=== PATIENT | male | born 1955 | race Caucasian/White ===

== ENCOUNTER 2016-09-09 22:27 | Inpatient (IN) | payer OTHER ==
[~2016-09-09] VITALS: Ht 170.2 cm; Wt 63.5 kg
[2016-09-09] MEDS ORDERED: IV SET PRIMARY 1 EA INFUS.SET MC ONE (22:58)
[2016-09-09] MEDS ORDERED: IV NS 0.9% 1,000 ML ONE (22:58)
[2016-09-09] MEDS ORDERED: IV NS 0.9% 1,000 ML BAG IV ONE (23:00)
[2016-09-09 23:30] LABS: BASOPHILS % (AUTO) 0.3 % (0.0-2.0); DIFF TOTAL % 100 %; EOSINOPHILS % (AUTO) 0.3 % (0.0-6.0); HEMATOCRIT 47 % (39-51); HEMOGLOBIN 15.7 g/dL (13.5-17.5); LYMPHOCYTES # (AUTO) 2.1 /CMM (0.8-4.8); LYMPHOCYTES % (AUTO) 16.7 % (20.0-44.0); MEAN CORPUSCULAR HEMOGLOBIN 32 PG (26.0-33.0); MEAN CORPUSCULAR HGB CONC 34 g/dl (31.0-36.0); MEAN CORPUSCULAR VOLUME 94 fL (80-96); MONOCYTES % (AUTO) 8.4 % (2.0-12.0); NEUTROPHILS # (AUTO) 9.1 /CMM (1.8-8.9); NEUTROPHILS % (AUTO) 74.3 % (43.0-81.0); PLATELET COUNT (AUTO) 314 /CMM (150-450); RED BLOOD CELL COUNT(AUTO) 4.95 MIL/uL (4.5-6.0); WHITE BLOOD COUNT (AUTO) 12.3 K/uL (4.3-11.0)
[2016-09-09 23:38] LABS: KETONES,URINE NEGATIVE (NEGATIVE); LEUKOCYTE ESTERASE ,URINE NEGATIVE (NEGATIVE); PH,URINE 6.5 (5.0-8.0)
[2016-09-09 23:39] LABS: ADD UA MICROSCOPIC YES
[2016-09-09 23:41] LABS: PHENCYCLIDINE SCREEN,URINE NEGATIVE (NEGATIVE)
[2016-09-09 23:42] LABS: CANNABINOID, URINE POSITIVE (NEGATIVE)
[2016-09-09 23:43] LABS: ANION GAP 13 (5-14); CALCIUM, SERUM 9.8 mg/dL (8.5-10.1); CARBON DIOXIDE 29 mmol/L (21-32); CHLORIDE 94 mmol/L (98-107); CREATININE 1.1 mg/dL (0.6-1.3); GFR 69 mL/min (>60); GLUCOSE 97 mg/dL (74-106); POTASSIUM 3.2 mmol/L (3.5-5.1); SODIUM SERUM 133 mmol/L (136-145); UREA NITROGEN, BLOOD 11 mg/dL (7-18)
[2016-09-09 23:47] LABS: ADD URINE CULTURE YES; RBC,URINE NONE SEEN /HPF (0-2); WBC,URINE 0-2 /HPF (0-3)
[2016-09-09 23:48] LABS: ALANINE AMINOTRANSFERASE 20 U/L (12-78); ALBUMIN 4.5 g/dL (3.4-5.0); ASPARTATE AMINOTRANSFERASE 25 U/L (15-37); BILIRUBIN,DIRECT 0.4 mg/dL (0.0-0.2); BILIRUBIN,TOTAL 1.9 mg/dL (0.2-1.0); INDIRECT BILIRUBIN 1.5 mg/dL (0.0-1.1); SALICYLATE 3.3 mg/dL (2.8-20.0); TOTAL PROTEIN, SERUM 7.9 g/dL (6.4-8.2)
[2016-09-09 23:50] LABS: ACETAMINOPHEN 0 ug/ml (10-30)
[2016-09-10 02:00] VITALS: BP 180/107
[2016-09-10] MEDS ORDERED: POTASSIUM CHLORIDE 20 MEQ TAB.PRT.SR PO ONE ×2 (02:00→05:37)
[2016-09-10] MEDS ORDERED: IV NS 0.9% 1,000 ML ONE (03:48)
[2016-09-10] MEDS ORDERED: IV SET PRIMARY PUMP SET 1 EA INFUS.SET MC ONE ×2 (03:49→14:11)
[2016-09-10 04:30] VITALS: BP 142/96
[2016-09-10] MEDS ORDERED: ACETAMINOPHEN 650 MG/20.3 ML UDC PO PRN (06:00)
[2016-09-10] MEDS ORDERED: IV NS 0.9% 1,000 ML BAG IV PRN (06:00)
[2016-09-10 07:46] LABS: BILIRUBIN,TOTAL 1.7 mg/dL (0.2-1.0); CALCIUM, SERUM 8.6 mg/dL (8.5-10.1); CREATININE 1.1 mg/dL (0.6-1.3); PHOSPHORUS 2.9 mg/dL (2.5-4.9); POTASSIUM 3.4 mmol/L (3.5-5.1); TOTAL PROTEIN, SERUM 7.2 g/dL (6.4-8.2)
[2016-09-10] MEDS ORDERED: IV NS 0.9% 1,000 ML IV PRN ×2 (08:00→09:30)
[2016-09-10] MEDS ORDERED: clonazePAM 1 MG TABLET PO SCH (09:00)
[2016-09-10] MEDS ORDERED: ASPIRIN 81 MG TAB.CHEW PO SCH (09:15)
[2016-09-10] MEDS ORDERED: SECONDARY IV SET 1 EA INFUS.SET MC ONE ×2 (09:28→12:45)
[2016-09-10] MEDS ORDERED: ALPRAZOLAM 1 MG TABLET ONE (09:29)
[2016-09-10] MEDS ORDERED: ACETAMINOPHEN 325 MG TABLET PO PRN (09:30)
[2016-09-10] MEDS: VALSARTAN 80 MG TABLET PO SCH (09:36)
[2016-09-10] MEDS: ASPIRIN 81 MG TAB.CHEW PO SCH (09:45)
[2016-09-10] MEDS: clonazePAM 1 MG TABLET PO SCH ×2 (09:59→21:20)
[2016-09-10] MEDS: Magnesium 1GM/D5W 100ML PREMIX 100 ML IV SCH ×2 (09:59→11:44)
[2016-09-10] MEDS ORDERED: QUET100T PO (10:08)
[2016-09-10] MEDS ORDERED: CLON1TAB PO (10:08)
[2016-09-10] MEDS ORDERED: RISP0.253 PO (10:08)
[2016-09-10] MEDS ORDERED: HYDR25TA4 PO (10:08)
[2016-09-10] MEDS ORDERED: MIRT45TA5 PO (10:08)
[2016-09-10] MEDS ORDERED: Thiamine 100 MG in IV D5W 50 ML IV SCH (10:30)
[2016-09-10] MEDS ORDERED: Folic acid 1 MG in IV D5W 50 ML IV SCH (10:30)
[2016-09-10] MEDS ORDERED: MVI-12 10ML IV ONE (10:30)
[2016-09-10] MEDS ORDERED: MVI ADULT 10ML VIAL = 1AMP 10 ML in IV NS 0.9% 1,000 ML IV ONE (11:30)
[2016-09-10 12:00] VITALS: BP 153/89
[2016-09-10 19:00] VITALS: BP 149/84
[2016-09-10 22:00] VITALS: BP 149/84
[2016-09-11 06:33] LABS: BASOPHILS % (AUTO) 0.5 % (0.0-2.0); DIFF TOTAL % 100 %; EOSINOPHILS # (AUTO) 0.2 /CMM (0.0-0.7); HEMATOCRIT 40 % (39-51); HEMOGLOBIN 13.6 g/dL (13.5-17.5); LYMPHOCYTES % (AUTO) 21.4 % (20.0-44.0); MEAN CORPUSCULAR HEMOGLOBIN 32 PG (26.0-33.0); MEAN CORPUSCULAR HGB CONC 34 g/dl (31.0-36.0); MEAN CORPUSCULAR VOLUME 95 fL (80-96); MONOCYTES # (AUTO) 0.7 /CMM (0.1-1.30); MONOCYTES % (AUTO) 7.8 % (2.0-12.0); NEUTROPHILS # (AUTO) 6.4 /CMM (1.8-8.9); NEUTROPHILS % (AUTO) 68.3 % (43.0-81.0); PLATELET COUNT (AUTO) 239 /CMM (150-450); RED BLOOD CELL COUNT(AUTO) 4.22 MIL/uL (4.5-6.0); WHITE BLOOD COUNT (AUTO) 9.4 K/uL (4.3-11.0)
[2016-09-11 06:46] LABS: CALCIUM, SERUM 8.5 mg/dL (8.5-10.1); CREATININE 0.9 mg/dL (0.6-1.3); POTASSIUM 3.9 mmol/L (3.5-5.1)
[2016-09-11] MEDS: clonazePAM 1 MG TABLET PO SCH (07:56)
[2016-09-11] MEDS: ASPIRIN 81 MG TAB.CHEW PO SCH (07:57)
[2016-09-11] MEDS: VALSARTAN 80 MG TABLET PO SCH (07:58)
[2016-09-11 08:00] VITALS: BP 125/77
[2016-09-11] MEDS ORDERED: Magnesium 1GM/D5W 100ML PREMIX 100 ML IV ONE (08:12)
[2016-09-11] MEDS ORDERED: IV SET PRIMARY PUMP SET 1 EA INFUS.SET MC ONE ×2 (08:12→08:13)
[2016-09-11] MEDS ORDERED: SECONDARY IV SET 1 EA INFUS.SET MC ONE (08:12)
[2016-09-11] MEDS ORDERED: IV NS 0.9% 250 ML IV ONE (08:12)
[2016-09-11] MEDS ORDERED: HYDROCHLOROTHIAZIDE 25 MG TABLET PO SCH (09:00)
[2016-09-11] MEDS ORDERED: THIAMINE HCL 100 MG TABLET PO SCH (12:00)
[2016-09-11] MEDS ORDERED: FOLIC ACID 1 MG TABLET PO SCH (12:00)
== END 2016-09-11 13:40 | disposition left against medical advice (07) | DRG 812 ==
LOC: ER 22:33 → TELE 09-10 01:34 → MED 09-10 10:54
PROVIDERS: ADMIT Nurse Practitioner Acute Care; ATTEND Nurse Practitioner Acute Care
DX: T43.592A Poisoning by other antipsychotics and neuroleptics, intentional self-harm, initial encounter (principal); E87.1 Hypo-osmolality and hyponatremia; I10 Essential (primary) hypertension; E83.42 Hypomagnesemia; E78.5 Hyperlipidemia, unspecified; Y92.009 Unspecified place in unspecified non-institutional (private) residence as the place of occurrence of the external cause; D72.829 Elevated white blood cell count, unspecified; E86.9 Volume depletion, unspecified; E87.6 Hypokalemia; F12.10 Cannabis abuse, uncomplicated; F17.210 Nicotine dependence, cigarettes, uncomplicated; F10.10 Alcohol abuse, uncomplicated; I49.1 Atrial premature depolarization; F32.9 Major depressive disorder, single episode, unspecified; R94.31 Abnormal electrocardiogram [ECG] [EKG]; Z71.6 Tobacco abuse counseling; F15.10 Other stimulant abuse, uncomplicated
CPT/HCPCS: 36415; 80048-TC; 80053-TC; 80076-TC; 80305; 81000-TC; 82962-TC; 83735-TC; 84100-TC; 84484-TC; 85025-TC; 87081-TC; 87086-TC; 93307-TC; A4606; G0480; G6039-TC; J3411; J3475; J3490; J7030; J7050; J7060; Z7610

== ENCOUNTER 2016-10-02 18:43 | Emergency (ER) | payer OTHER ==
[~2016-10-02] VITALS: Ht 172.7 cm; Wt 61.2 kg
[~2016-10-02 18:43] MED LIST: CLON1TAB PO; HYDR25TA4 PO; MIRT45TA5 PO; QUET100T PO; RISP0.253 PO
[2016-10-02 18:47] VITALS: BP 152/103
[2016-10-02 19:49] LABS: ALANINE AMINOTRANSFERASE 47 U/L (12-78); ALBUMIN 3.8 g/dL (3.4-5.0); ANION GAP 16 (5-14); ASPARTATE AMINOTRANSFERASE 32 U/L (15-37); BILIRUBIN,DIRECT 0.1 mg/dL (0.0-0.2); BILIRUBIN,TOTAL 0.2 mg/dL (0.2-1.0); CARBON DIOXIDE 27 mmol/L (21-32); CHLORIDE 106 mmol/L (98-107); CREATININE 1.1 mg/dL (0.6-1.3); GFR 69 mL/min (>60); GLUCOSE 98 mg/dL (74-106); INDIRECT BILIRUBIN 0.1 mg/dL (0.0-1.1); POTASSIUM 4.8 mmol/L (3.5-5.1); SODIUM SERUM 144 mmol/L (136-145); TOTAL PROTEIN, SERUM 7.7 g/dL (6.4-8.2); UREA NITROGEN, BLOOD 18 mg/dL (7-18)
[2016-10-02 19:58] LABS: BASOPHILS % (AUTO) 0.1 % (0.0-2.0); DIFF TOTAL % 100 %; EOSINOPHILS # (AUTO) 0.1 /CMM (0.0-0.7); EOSINOPHILS % (AUTO) 0.7 % (0.0-6.0); HEMATOCRIT 38 % (39-51); HEMOGLOBIN 12.4 g/dL (13.5-17.5); LYMPHOCYTES # (AUTO) 2.2 /CMM (0.8-4.8); LYMPHOCYTES % (AUTO) 29.1 % (20.0-44.0); MEAN CORPUSCULAR HEMOGLOBIN 31 PG (26.0-33.0); MEAN CORPUSCULAR HGB CONC 33 g/dl (31.0-36.0); MEAN CORPUSCULAR VOLUME 94 fL (80-96); MONOCYTES # (AUTO) 0.4 /CMM (0.1-1.30); MONOCYTES % (AUTO) 4.7 % (2.0-12.0); NEUTROPHILS # (AUTO) 4.9 /CMM (1.8-8.9); NEUTROPHILS % (AUTO) 65.4 % (43.0-81.0); PLATELET COUNT (AUTO) 617 /CMM (150-450); WHITE BLOOD COUNT (AUTO) 7.7 K/uL (4.3-11.0)
[2016-10-02 19:59] LABS: ACETAMINOPHEN < 2 ug/ml (10-30); SALICYLATE 2.6 mg/dL (2.8-20.0)
[2016-10-02 20:13] LABS: INR 1.04 (0.87-1.13); PROTHROMBIN TIME 10.9 SECS (9.5-12.7)
[2016-10-02 21:25] LABS: ADD UA MICROSCOPIC NO; KETONES,URINE Negative (NEGATIVE); LEUKOCYTE ESTERASE ,URINE Negative (NEGATIVE)
[2016-10-02 21:36] LABS: CANNABINOID, URINE NEGATIVE (NEGATIVE); PHENCYCLIDINE SCREEN,URINE NEGATIVE (NEGATIVE)
== END 2016-10-03 02:38 ==
LOC: ER 18:46
DX: R45.851 Suicidal ideations (principal); F10.129 Alcohol abuse with intoxication, unspecified; I10 Essential (primary) hypertension; E78.5 Hyperlipidemia, unspecified; F31.9 Bipolar disorder, unspecified; Z98.890 Other specified postprocedural states; R79.1 Abnormal coagulation profile
CPT/HCPCS: 36415; 80048; 80076; 80305; 80329; 81001; 85025; 85730; 99285; A4606; G0480 ×2; Z7610; 81000-TC; G6039-TC